=== PATIENT | female | born 1950 | race Caucasian/White ===

== ENCOUNTER 2025-03-20 08:02 | Inpatient (IN) | payer MEDICARE ==
[2025-03-20 08:49] LABS: #Basophils 0.03 10x3/uL (0.0-0.2); #Eosinophils 0.13 10x3/uL (0.0-0.5); #Monocytes 0.39 10x3/uL (0.0-1.1); #Neutrophils 7.48 10x3/uL (1.5-8.4); %Basophils 0.3 % (0.0-2.0); %Eosinophils 1.4 % (0.0-6.0); %Lymphocytes 11.7 % (18.0-47.0); %Monocytes 4.3 % (0.0-10.0); %Neutrophils 81.9 % (40.0-75.0); Hematocrit 35.4 % (34.9-44.5); Hemoglobin 11.0 g/dL (12.0-15.5); Mean Corpuscular Hemoglobin 27.2 pg (27.0-33.0); Mean Corpuscular Volume 87.6 fL (81.6-98.3); Platelet Count 240 10x3/uL (150-450); Red Blood Cell (RBC) Count 4.04 10x6/uL (3.90-5.03); White Blood Cell (WBC) Count 9.14 10x3/uL (3.5-10.5)
[2025-03-20 09:06] LABS: Glucose, Urine (Dipstick) >=1000 mg/dL (Negative); Leukocyte 500 (Negative); Protein, Urine (Dipstick) Negative (Neg-Trace); Specific Gravity, Urine 1.010 (1.005-1.030)
[2025-03-20 09:11] LABS: ALT (SGPT) 9 U/L (Less than 34); AST (SGOT) 16 U/L (11-34); Albumin 3.4 g/dL (3.1-4.5); Alkaline Phosphatase 87 U/L (40-110); Anion Gap 19 mmol/L (10-20); BUN (Urea Nitrogen) 30 mg/dL (9.8-20.1); Bilirubin, Total 0.8 mg/dL (0.3-1.2); Calc. Creatinine Clearance 0 mL/min (70-130); Calcium 9.0 mg/dL (7.8-10.44); Carbon Dioxide 17 mmol/L (23-31); Chloride 104 mmol/L (98-107); Globulin 2.6 g/dL (2.4-3.5); Lipase 23 U/L (8-78); Magnesium 1.4 mg/dL (1.6-2.6); Potassium 3.9 mmol/L (3.5-5.1); Sodium 136 mmol/L (136-145)
[2025-03-20 09:13] LABS: Troponin I Less than 0.010 ng/mL (< 0.028)
[2025-03-20 09:13] LABS: Glucose 515 mg/dL (83-110)
[2025-03-20 09:30] LABS: Bacteria/HPF 4+ HPF (None Seen); CAUTI Indications for Culture Dysuria,urgency,freq; RBC/HPF 0-3 HPF (0-3); Urine Culture Reflex No No
[2025-03-20] MEDS ORDERED: Magnesium 2 GM/50 ML BAG (IN WATER) ONE (09:54)
[2025-03-20 10:18] LABS: Actual Bicarbonate (HCO3v) 22.8 mEq/L (22-28); Analyzer IN Cardio CS ER; Base Excess -3.6 mEq/L (-2 - +2); Calcium, Ionized (venous) 1.12 mmol/L (1.16-1.32); Chloride (VBG) 105 mmol/L (98-106); Hematocrit-VBG 34 % (36.0-47.0); Hemoglobin (Hb) 11.4 g/dL (11.7-16.1); Potassium (VBG) 3.97 mmol/L (3.70-5.30); Puncture Site Other Site; RapidComm Collect By LAB; Sodium 137 mmol/L (133-146)
[2025-03-20] MEDS ORDERED: cefTRIAXone (ROCEPHIN) 2 GM VIAL ONE (10:26)
[2025-03-20] MEDS ORDERED: INSULIN REGULAR IN 0.9 % NACL 100 ML ONE (11:12)
[2025-03-20 12:21] LABS: Troponin I 0.010 ng/mL (< 0.028)
[2025-03-20] MEDS ORDERED: Ondansetron PF 4 MG/2 ML Vial IVP PRN (12:31)
[2025-03-20] MEDS ORDERED: Electrolyte Replacement Protocol 1 EACH FS SCH (12:31)
[2025-03-20] MEDS ORDERED: Acetaminophen 500 MG TAB PO PRN (12:31)
[2025-03-20] MEDS ORDERED: NS 0.9% w/ 20 MEQ KCL 1,000 ML IV PRN ×2 (12:31)
[2025-03-20 12:51] VITALS: BP 91/62
[2025-03-20 12:56] LABS: Anion Gap 16 mmol/L (10-20); BUN (Urea Nitrogen) 25 mg/dL (9.8-20.1); Calc. Creatinine Clearance 0 mL/min (70-130); Calcium 8.4 mg/dL (7.8-10.44); Carbon Dioxide 19 mmol/L (23-31); Chloride 108 mmol/L (98-107); Glucose 269 mg/dL (83-110); Potassium 3.8 mmol/L (3.5-5.1); Sodium 139 mmol/L (136-145)
[2025-03-20] MEDS: Dextrose 50% Abboject 50 ML SYRINGE SLOW IVP PRN (12:59)
[2025-03-20] MEDS ORDERED: PHOS-NAK 1 PKT PACK PO PRN (13:00)
[2025-03-20] MEDS ORDERED: Potassium Chloride 20 MEQ in Premix 1 BAG IVPB PRN (13:00)
[2025-03-20] MEDS: D5 1/2 NS w/20 mEq KCL 1,000 ML IV PRN (13:02)
[2025-03-20 13:11] VITALS: BMI 24.0
[2025-03-20 16:39] LABS: Anion Gap 13 mmol/L (10-20); BUN (Urea Nitrogen) 21 mg/dL (9.8-20.1); Calc. Creatinine Clearance 64 mL/min (70-130); Calcium 8.1 mg/dL (7.8-10.44); Carbon Dioxide 22 mmol/L (23-31); Chloride 108 mmol/L (98-107); Glucose 253 mg/dL (83-110); Potassium 4.0 mmol/L (3.5-5.1); Sodium 139 mmol/L (136-145)
[2025-03-20] MEDS: Magnesium 2 GM/50 ML(in water) 2 GM in Premix 1 BAG IVPB PRN (18:24)
[2025-03-20] MEDS: Electrolyte Replacement Protocol 1 EACH IVPB ONE (19:24)
[2025-03-20] MEDS: Famotidine 20 MG TAB PO SCH (20:31)
[2025-03-20] MEDS: Mupirocin 1 GM TUBE TP SCH (20:32)
[2025-03-20 20:53] LABS: Anion Gap 13 mmol/L (10-20); BUN (Urea Nitrogen) 19 mg/dL (9.8-20.1); Calc. Creatinine Clearance 68 mL/min (70-130); Calcium 8.5 mg/dL (7.8-10.44); Carbon Dioxide 23 mmol/L (23-31); Chloride 109 mmol/L (98-107); Glucose 190 mg/dL (83-110); Potassium 4.4 mmol/L (3.5-5.1); Sodium 141 mmol/L (136-145)
[2025-03-20] MEDS: INSULIN REGULAR IN 0.9 % NACL 100 ML IVPB SCH (22:59)
[2025-03-21 03:53] LABS: Hematocrit 29.0 % (34.9-44.5); Hemoglobin 9.3 g/dL (12.0-15.5); Mean Corpuscular Hemoglobin 27.4 pg (27.0-33.0); Mean Corpuscular Volume 85.5 fL (81.6-98.3); Platelet Count 218 10x3/uL (150-450); Red Blood Cell (RBC) Count 3.39 10x6/uL (3.90-5.03); White Blood Cell (WBC) Count 4.81 10x3/uL (3.5-10.5)
[2025-03-21 04:28] LABS: Anion Gap 10 mmol/L (10-20); BUN (Urea Nitrogen) 14 mg/dL (9.8-20.1); Calc. Creatinine Clearance 74 mL/min (70-130); Calcium 8.3 mg/dL (7.8-10.44); Carbon Dioxide 23 mmol/L (23-31); Chloride 110 mmol/L (98-107); Glucose 194 mg/dL (83-110); Magnesium 2.0 mg/dL (1.6-2.6); Potassium 4.3 mmol/L (3.5-5.1); Sodium 139 mmol/L (136-145)
[2025-03-21] MEDS ORDERED: Glucagon 1 MG/ML KIT IM PRN (04:45)
[2025-03-21] MEDS ORDERED: Dextrose 50% Abboject 50 ML SYRINGE SLOW IVP PRN (04:45)
[2025-03-21] MEDS: Lantus 1000 UNITS/10 ML VIAL SC SCH (06:06)
[2025-03-21 09:44] LABS: Troponin I 0.025 ng/mL (< 0.028)
[2025-03-21] MEDS: Cyanocobalamin (Vitamin B-12) 1,000 MCG TAB PO SCH (10:35)
[2025-03-21] MEDS: cefTRIAXone\\ROCEPHIN 1 GM in Sodium Chloride 0.9% 100 ML IVPB SCH (10:53)
[2025-03-21 12:25] VITALS: TEMP 98.2
== END 2025-03-21 12:15 | disposition home or self-care (01) | DRG 638 ==
LOC: CSHERS 08:02 → CSHICU 11:07
PROVIDERS: ADMIT Family Medicine; ATTEND Family Medicine
DX: E11.10 Type 2 diabetes mellitus with ketoacidosis without coma (principal); N17.9 Acute kidney failure, unspecified; N39.0 Urinary tract infection, site not specified; E83.42 Hypomagnesemia; Z88.0 Allergy status to penicillin; Z79.4 Long term (current) use of insulin; E03.9 Hypothyroidism, unspecified; Z90.49 Acquired absence of other specified parts of digestive tract; Z90.710 Acquired absence of both cervix and uterus; Z98.890 Other specified postprocedural states; I48.91 Unspecified atrial fibrillation
CPT/HCPCS: 36415; 36416; 71045; 80048; 80053; 81001; 82010; 82805; 83605; 83690; 83735; 84100; 84443; 84484; 85025; 85027; 87077; 87086; 87186; 93005; 93010; 93306; 94760; 96374; 96375; J0696; J1815; J3475; J3480; J7999